=== PATIENT | female | born 1980 | race Caucasian/White ===

== ENCOUNTER 2025-02-10 08:51 | Emergency (ER) | payer OTHER, SELFPAY ==
[2025-02-10 08:58] VITALS: BP 151/115
[2025-02-10 09:24] VITALS: BMI 20.8
[2025-02-10 09:24] LABS: COVID-19 Antigen Negative (Negative)
[2025-02-10 09:27] VITALS: BP 136/93
--- NOTE | 2025-02-10 09:39 | ED.GENMED ---
History of Present Illness
<Jaime Whitley PA-C - Last Filed: 02/10/25 14:51>
General
Chief Complaint: Breathing Problem
Source: patient
Time Seen by Provider: 02/10/25 09:22
History of Present Illness
History of Present Illness:
44-year-old female with past medical history of hypertension and asthma presenting to the emergency department for evaluation of wheezing and a cough that began Tuesday, went to use her inhaler Tuesday but noticed that she was out of the medication,
contacted her primary care provider who prescribed her a new inhaler and prednisone but patient states this morning still with cough and wheezing. Patient states she feels as if she is in her otherwise usual state of health, denies any fevers,
chills, rigors, URI-like symptoms, chest pain, palpitations, diaphoresis. She states that her asthma is not something that usually flares very often as she will sometimes get it with exercise but normally not on a day-to-day basis. No recent
hospitalizations. Patient started the first day of a prednisone taper yesterday, has yet to take the second days worth of prednisone today.
Past History
<Jaime Whitley PA-C - Last Filed: 02/10/25 14:51>
Past History
ED Past Medical History: Asthma and HTN
ED Past Surgical History: None
Social History
Tobacco: Non-smoker
Alcohol: Occasional
Drug: None
Personal:
Living: with family
Review of Systems
<Jaime Whitley PA-C - Last Filed: 02/10/25 14:51>
Review of Systems
All Other Systems: ROS reviewed and negative except as documented in HPI and ROS
Phy Exam
<Jaime Whitley PA-C - Last Filed: 02/10/25 14:51>
Physical Exam
Physical Exam:
GENERAL: Alert , in no apparent distress
HEAD: Normocephalic atraumatic
EYE: conjunctiva clear
NECK: Supple
ENT: o/p clr, mmm.
CARDIAC: Regular rate and rhythm
LUNGS: Generalized rhonchi and wheezing within the posterior lung langston, nontachypneic, no accessory muscle use, speaking full sentences
NEUROLOGICAL: Alert and oriented
SKIN: Warm and dry, skin intact.
MUSCULOSKELETAL: well perfused.
PSYCH: Normal and appropriate interaction.
Scores
<Jaime Whitley PA-C - Last Filed: 02/10/25 14:51>
Heart Failure Risk
Heart Failure Risk Score: Not Applicable
Heart Score for Chest Pain Patients
STEMI patient?: Not applicable
Withdrawal Assessment of Alcohol
Withdrawal Assessment Completed?: Not applicable
Course
<Jaime Whitley PA-C - Last Filed: 02/10/25 14:51>
Orders/Labs/Results
Orders:
Orders
02/10/25 09:00
Chest [CR Chest - 2 Views ] Urgent
Comment:
Reason For Exam: SOB
02/10/25 09:01
COVID-19 Antigen Urgent
Source: Nasal Swab
Influenza A+B Rapid Molecular Urgent
SIMENO Source: Nasal Swab
Specimen Description:
02/10/25 09:36
Ipratropium/Albuterol Sulfate [Duoneb] 3 ml INH R NOW ONE
02/10/25 09:47
Ipratropium/Albuterol Sulfate [Duoneb] 3 ml .ROUTE .STK-MED ONE
02/10/25 10:40
Albuterol Sulfate [Ventolin Nebules] 10 mg INH R NOW STA
02/10/25 12:23
IV Insert/Care/Rem.- Treatment PRN
Magnesium Sulfate 2 Gram/50 ml [Magnesium Sulfate] 2 gram in 50 ml IV NOW
02/10/25 12:35
MethylPREDNISolone PF [Solu-Medrol Pf] 40 mg IV NOW STA
02/10/25 12:39
Basic Metabolic Panel Urgent
Complete Blood Count/With Diff Urgent
Abnormal Lab Results
02/10/25
12:39
WBC 14.0 H 10^3/uL
(4.8-10.8)
MPV 10.6 H fL
(7.4-10.4)
Abs Immat Gran (auto) 0.1 H 10^3/uL
(0-0.05)
Absolute Neuts (auto) 12.0 H 10^3/uL
(1.4-6.5)
Neutrophils % 85.7 H %
(42.2-75.2)
Lymphocytes % 9.5 L %
(20.5-51.1)
Carbon Dioxide 18 L mmol/L
(22-30)
Creatinine 0.5 L mg/dL
(0.6-1.0)
Glucose 115 H mg/dl
(70-99)
02/10/25 12:39
02/10/25 12:39
Vital Signs
Initial and Last Documented VS:
Initial Vital Signs
Temp Pulse Resp BP Pulse Ox
98.1 F 86 20 151/115 96
02/10/25 08:58 02/10/25 08:58 02/10/25 08:58 02/10/25 08:58 02/10/25 08:58
Last Documented Vital Signs
Temp Pulse Resp BP Pulse Ox
98.1 F 75 20 146/98 93
02/10/25 08:58 02/10/25 09:30 02/10/25 09:30 02/10/25 12:00 02/10/25 13:00
<Chau Eid MD - Last Filed: 02/10/25 14:13>
Orders/Labs/Results
Orders:
Orders
02/10/25 09:00
Chest [CR Chest - 2 Views ] Urgent
Comment:
Reason For Exam: SOB
02/10/25 09:01
COVID-19 Antigen Urgent
Source: Nasal Swab
Influenza A+B Rapid Molecular Urgent
SIMEON Source: Nasal Swab
Specimen Description:
02/10/25 09:36
Ipratropium/Albuterol Sulfate [Duoneb] 3 ml INH R NOW ONE
02/10/25 09:47
Ipratropium/Albuterol Sulfate [Duoneb] 3 ml .ROUTE .STK-MED ONE
02/10/25 10:40
Albuterol Sulfate [Ventolin Nebules] 10 mg INH R NOW STA
02/10/25 12:23
IV Insert/Care/Rem.- Treatment PRN
Magnesium Sulfate 2 Gram/50 ml [Magnesium Sulfate] 2 gram in 50 ml IV NOW
02/10/25 12:35
MethylPREDNISolone PF [Solu-Medrol Pf] 40 mg IV NOW STA
02/10/25 12:39
Basic Metabolic Panel Urgent
Complete Blood Count/With Diff Urgent
Abnormal Lab Results
02/10/25
12:39
WBC 14.0 H 10^3/uL
(4.8-10.8)
MPV 10.6 H fL
(7.4-10.4)
Abs Immat Gran (auto) 0.1 H 10^3/uL
(0-0.05)
Absolute Neuts (auto) 12.0 H 10^3/uL
(1.4-6.5)
Neutrophils % 85.7 H %
(42.2-75.2)
Lymphocytes % 9.5 L %
(20.5-51.1)
Carbon Dioxide 18 L mmol/L
(22-30)
Creatinine 0.5 L mg/dL
(0.6-1.0)
Glucose 115 H mg/dl
(70-99)
02/10/25 12:39
02/10/25 12:39
Vital Signs
Initial and Last Documented VS:
Initial Vital Signs
Temp Pulse Resp BP Pulse Ox
98.1 F 86 20 151/115 96
02/10/25 08:58 02/10/25 08:58 02/10/25 08:58 02/10/25 08:58 02/10/25 08:58
Last Documented Vital Signs
Temp Pulse Resp BP Pulse Ox
98.1 F 75 20 146/98 93
02/10/25 08:58 02/10/25 09:30 02/10/25 09:30 02/10/25 12:00 02/10/25 13:00
<Jaime Whitley PA-C - Last Filed: 02/10/25 14:51>
MDM/Problems Addressed
Differential Diagnosis Includes:
COVID
Flu
Other Viral Etiology
Pneumonia
Asthma exacerbation
Reactive airway
MDM/Problems Addressed:
44-year-old female presenting to the ER for evaluation of wheezing and cough for the last 2 days, minimal relief with her inhaler and prednisone. On arrival here patient with rhonchi and wheezing. No acute respiratory distress however. COVID and
flu testing ordered in triage is negative. Chest x-ray is without any acute abnormalities. Will treat here with a DuoNeb and patient to take her second days worth of her prednisone taper. Reassessment following
Chronic conditions affecting care: Asthma
Acute Exacerbation and/or Progression of Chronic Illness: Asthma
<Jaime Whitley PA-C - Last Filed: 02/10/25 14:51>
*Radiology
Radiology exam reviewed: preliminary read by ED provider ( normal chest x-ray)
*Pulse Oximetry
SaO2: 97
Oxygen Mode of Delivery: Room air
Patient hypoxic: no
*Critical Care Note
Total Time (30-74mins, 75-104mins- exclusive of procedures): Not Applicable
<Jaime Whitley PA-C - Last Filed: 02/10/25 14:51>
Comment
Comment:
On multiple reevaluations patient still with persistent moderate expiratory wheezing, most pronounced in the posterior lung langston. Given she has not improved with 2 separate nebs as well as her oral steroid we will place an IV, trial IV steroid
and IV magnesium. Will need to consider admission if no improvement
Patient Management
Social determinants of health affecting care: Living situation and Strong social support
Escalation/DeEscalation of care consider admission/obs:
On reevaluation following the IV magnesium patient still with audible expiratory wheezing. Given her persistent symptoms I did ultimately recommend patient be admitted for continued treatment of what appears to be persistent moderate asthma but
patient declined admission and ultimately preferred to be discharged home. She already has prednisone, a short acting albuterol inhaler and a budesonide albuterol combo inhaler. I did give the patient a prescription for a nebulizer machine and
sent albuterol solution for the nebulizer to her pharmacy. Encouraged outpatient follow-up with primary care provider as well as return precautions to the ER.
ED Attending Note
<Jaime Whitley PA-C - Last Filed: 02/10/25 14:51>
-
Portions of this chart may have been created with voice recognition software.� Occasional wrong word or��sound alike� substitutions may have occurred due to the inherent limitations of voice recognition software.
<Chau Eid MD - Last Filed: 02/10/25 14:13>
ED Attending Note
Patient seen and examined by attending physician: Yes
ED Attending Note:
I have seen and evaluated the patient with a [id number] encounter. I have spoken to the advance practicer provider and involved in the medical history, the physical exam, medical decision making.
Evaluation and management service: agree unless noted differently below.
Results interpretation: agree unless noted differently below.
Focused HPI: 44-year-old female with a distant history of asthma presents for evaluation of shortness of breath, wheezing, coughing. Patient reports onset of symptoms Rommel and have been constant and worsening. They seem to be worse at night.
She reports wheezing, chest tightness with hacking nonproductive cough. She says she was prescribed albuterol, budesonide, oral prednisone by her PCP but none of these things seem to be working which prompted ER visit. She had similar episode in
November of this year but before that had not had issues with asthma since she was much younger.
Physical exam: Awake and alert, nontoxic. She is hypertensive, mild tachypnea but no hypoxia. Severe bilateral expiratory wheezing with prolonged expiration with diminished air movement.
Medical Decision Makin-year-old female presents with shortness of breath and wheezing as described above. Vitals and exam as above. Labs here showed leukocytosis in the setting of recent steroid use. Chest x-ray shows no acute disease.
Viral swabs negative. Overall suspect asthma versus bronchitis. She was given nebulizers, steroids here but still marked wheezing. Given magnesium but despite this still significant bilateral wheezing and coughing�will plan to admit for continued
treatment given failure of outpatient and conservative therapies.
Discharge Plan
Departure
Patient Disposition: Home (Routine Discharge)
Date of Disposition: 02/10/25
Time of Disposition: 14:42
Patient with high blood pressure during this ER visit?: Yes
Discharge Problem:
Acute asthma exacerbation
Instructions: Asthma, Adult (DC)
Prescriptions:
New
albuterol sulfate 2.5 mg /3 mL (0.083 %) solution for nebulization
2.5 mg inhalation QID PRN (Reason: bronchospasm) Qty: 180 0RF
Interventions
Interventions:
*General Assessment Last Done: 02/10/25 08:58
*Neglect/Abuse Screening Last Done: 02/10/25 08:58
*ED COVID-19 Vaccine History Last Done: 02/10/25 09:25
*ED Influenza Vaccine History Last Done: 02/10/25 09:25
[facility] Risk Assessment Tool Last Done: 02/10/25 08:51
*Risk Screen - Suicide (C-SSRS) Last Done: 02/10/25 08:58
ED- Cardiac Assessment Last Done: 02/10/25 09:26
ED- Pulmonary Assessment Last Done: 02/10/25 09:26
Discharge Date and Time
Print Language: LITHUANIAN
[2025-02-10] MEDS: DUONEB 3 ML INH (09:48)
[2025-02-10] MEDS: VENTOLIN NEBULES 10 MG INH (11:24)
[2025-02-10 11:28] VITALS: BP 156/89
[2025-02-10 12:00] VITALS: BP 146/98; BP 150/122
[2025-02-10] MEDS: MAGNESIUM SULFATE 50 IV (12:46)
[2025-02-10] MEDS: SOLU-MEDROL PF 40 MG IV (12:46)
[2025-02-10 12:52] LABS: Hematocrit 44.4 % (37.0-47.0); Hemoglobin 15.2 g/dL (12.0-16.0); Mean Corp Hgb Conc. 34.2 g/dL (33.0-37.0); Mean Corpuscular Volume 85.2 fL (81.0-99.0); Nucleated Red Blood Cells % 0 %; Platelet Count 255 10^3/uL (130-400); Red Cell Dist. Width 11.9 % (11.5-14.5)
[2025-02-10 13:14] LABS: Blood Urea Nitrogen 9 mg/dl (7-17); Calcium 9.9 mg/dl (8.4-10.2); Carbon Dioxide 18 mmol/L (22-30); Chloride 107 mmol/L (98-107); Estimated Creatinine Clearance 113 ml/min; Glucose 115 mg/dl (70-99); Potassium 3.5 mmol/L (3.5-5.1); Sodium 139 mmol/L (135-145); eGFR > 60.00
== END 2025-02-10 15:11 | disposition home or self-care (01) ==
LOC: EMR 08:51
PROVIDERS: Physician Assistant Medical; EMERGENCY PHYSICIAN Emergency Medicine
DX: J45.901 Unspecified asthma with (acute) exacerbation (principal); Z11.52 Encounter for screening for COVID-19; I10 Essential (primary) hypertension
CPT/HCPCS: 99284; 96365; 96366; 96375; 94640 ×2; 71046; 80048; 85025; 87502; 87811